=== PATIENT | male | born 1970 | race African-American/Black ===

== ENCOUNTER 2018-01-24 12:37 | Emergency (ER) | payer SELFPAY ==
[2018-01-24 13:01] VITALS: BP 129/70
[2018-01-24 13:25] LABS: AMORPHOUS SEDIMENT,URINE TRACE /HPF; APPEARANCE,URINE CLOUDY; BILIRUBIN,URINE NEGATIVE (NEGATIVE); COLOR,URINE YELLOW; GLUCOSE, URINE NEGATIVE (NEGATIVE); KETONES,URINE 20 mg/dL (NEGATIVE); LEUKOCYTE ESTERASE,URINE LARGE (NEGATIVE); NITRITE,URINE POSITIVE (NEGATIVE); PROTEIN,URINE NEGATIVE (NEGATIVE); URINE SPECIFIC GRAVITY 1.014; UROBILINOGEN,URINE NEGATIVE mg/dL (<2.0)
--- NOTE | 2018-01-24 14:52 | ER Document Report ---
ED GI/ - General Chief Complaint: Pain With Urination Stated Complaint: URINARY ISSUES Time Seen by Provider: 01/24/18 13:55 Mode of Arrival: Ambulatory Information source: Patient TRAVEL OUTSIDE OF THE U.S. IN LAST 30 DAYS: No - HPI Patient complains to provider of: Dysuria Notes: 01/24/18 14:47 Patient is here with complaints of pain with urination with increased urinary frequency and slightly decreased stream for the last few days. No fevers. No abdominal pain. No nausea, vomiting, diarrhea. He tells me he has a prior history of having prostatic hypertrophy and was on Flomax in the past, he does not currently have a primary care doctor here, so he has not been taking this medication. He denies any fevers. No rash. He denies any chest pain or shortness of breath. Nothing makes his symptoms better. He denies any prior history of urinary tract infection. He denies sexual activity. He denies penile discharge. No testicular pain or swelling. He has no other complaints at this time. - Related Data Allergies/Adverse Reactions: No Known Allergies Allergy (Verified 01/24/18 12:38) Past Medical History - Social History Smoking Status: Unknown if Ever Smoked Family History: Reviewed & Not Pertinent Review of Systems - Review of Systems -: Yes All other systems reviewed and negative Physical Exam - Vital signs Vitals: Temp Pulse Resp BP Pulse Ox 98.0 F 87 20 129/70 H 97 01/24/18 13:00 01/24/18 13:00 01/24/18 13:00 01/24/18 13:00 01/24/18 13:00 - Notes Notes: GENERAL: alert, cooperative, nontoxic, no distress. HEAD: normocephalic, atraumatic EYES: conjunctiva pink without discharge, no external redness or swelling. EARS: no external swelling, no external redness NOSE: atraumatic, no external swelling MOUTH/THROAT: mucous membranes moist and pink, posterior pharynx without erythema, swelling, exudate. No trismus or drooling. NECK: soft, supple, full range of motion, no meningismus. CHEST: no distress, lungs clear and equal throughout. No wheezing, rales, rhonchi. CARDIAC: regular rate and rhythm, no murmur, normal capillary refill, normal pulses. No peripheral edema noted. ABDOMEN: Soft, nontender. BACK: full range of motion, no CVA tenderness. EXTREMITIES: full range of motion of all extremities. No redness, no swelling. NEURO: alert and oriented x 3, no focal deficits, full range of motion of all extremities. PYSCH: appropriate mood, affect. Patient is cooperative. SKIN: pink, warm, dry, no rash. Course - Re-evaluation Re-evalutation: 01/24/18 14:48 Patient is nontoxic appearing with stable vitals. He is here with dysuria, urinary frequency and odor with his urine. Has been on for last several days. He has a prior history of having prostatic hypertrophy was on Flomax, he currently does not have a primary care doctor so he has not been taking that medication. He has no fevers. On exam he has no significant findings. No CVA tenderness or concern for pyelonephritis. No signs of urosepsis. Patient will be discharged home with prescription for Keflex, Pyridium, Flomax. Referrals to urology as well as primary care. Follow-up if not better in 1 week, sooner for worsening pain, high fever, persistent vomiting, flank pain, or for any further concerns. The patient's emergency department workup and current diagnosis were explained to the patient and or family. Follow-up instructions were provided. Medications if prescribed were discussed. Instructions for when to return to the emergency department including specific worrisome symptoms were discussed with the patient and/or family. The patient is noted to have elevated blood pressure during today's emergency department visit. The patient was informed of this finding. The patient was instructed that this may be related to pre-hypertension and requires further evaluation with a primary care provider. The patient has no hypertensive symptoms at this time. - Vital Signs Vital signs: Temp Pulse Resp BP Pulse Ox 98.0 F 87 20 129/70 H 97 01/24/18 13:00 01/24/18 13:00 01/24/18 13:00 01/24/18 13:00 01/24/18 13:00 - Laboratory Laboratory results interpreted by me: 01/24/18 12:54 Urine Ketones 20 H Urine Blood SMALL H Urine Nitrite POSITIVE H Ur Leukocyte Esterase LARGE H Discharge - Discharge Clinical Impression: UTI (urinary tract infection) Qualifiers: Urinary tract infection type: acute cystitis Hematuria presence: with hematuria Qualified Code(s): N30.01 - Acute cystitis with hematuria Condition: Stable Disposition: HOME, SELF-CARE Instructions: Cephalexin ([facility]), Urinary Tract Infection ([facility]) Additional Instructions: Take medications as prescribed. Drink plenty of fluids. Follow-up with primary care or urology at the next available appointment. Return the emergency department for worsening pain, high fever, persistent vomiting, flank pain, or for any further concerns. Your blood pressure was elevated during today's visit. Have this rechecked with your doctor. Prescriptions: Cephalexin Monohydrate [Keflex 500 mg Capsule] 500 mg PO TID #30 capsule Phenazopyridine HCl [Pyridium 200 mg Tablet] 200 mg PO TID #9 tablet Tamsulosin HCl [Flomax 0.4 mg Cap.sr] 0.4 mg PO DAILY #30 cap.sr.24h Forms: Elevated Blood Pressure, Smoking Cessation Education Referrals: [facility] [Provider Group] - Follow up as needed ENRIQUE GROVE MD [SHIRT IRONER] - Follow up as needed AMENA MILAN MD [SHIRT IRONER] - Follow up as needed KARLA GARDNER MD [NO LOCAL MD] - Follow up as needed TIEN DIAZ MD [SHIRT IRONER] - Follow up as needed WILD BREWER MD [SHIRT IRONER] - Follow up as needed DAPHNE BLEDSOE MD [NO LOCAL MD] - Follow up as needed DIOGO CHACON MD [EMERITUS] - Follow up as needed ANGEL RANGEL MD [NO LOCAL MD] - Follow up as needed RBUY BRIZUELA MD [NO LOCAL MD] - Follow up as needed
== END 2018-01-24 15:22 | disposition home or self-care (01) ==
LOC: ER 12:37
DX: N30.01 Acute cystitis with hematuria (principal); R30.9 Painful micturition, unspecified; R35.0 Frequency of micturition; R33.9 Retention of urine, unspecified; Z87.438 Personal history of other diseases of male genital organs; I10 Essential (primary) hypertension
CPT/HCPCS: 81001; 99283

== ENCOUNTER 2018-09-27 16:36 | Emergency (ER) | payer SELFPAY ==
[2018-09-27 16:43] VITALS: BP 131/79
== END 2018-09-27 20:00 | disposition left against medical advice (07) ==
LOC: ER 16:36
DX: Z53.21 Procedure and treatment not carried out due to patient leaving prior to being seen by health care provider (principal)

== ENCOUNTER 2019-07-09 13:27 | Emergency (ER) | payer OTHER ==
[2019-07-09] MEDS ORDERED: HYDROMORPHONE HCL INJ/PF 2 MG/ML AMPULE ONE (13:36)
[2019-07-09] MEDS ORDERED: HYDROMORPHONE HCL INJ/PF 2 MG/ML AMPULE IV ONE ×2 (13:38→13:40)
[2019-07-09] MEDS ORDERED: DIPH/PERTUSS(ACELL)/TETANUS VAC/PF 0.5 ML SYR (>=10YO) IM ONE (13:40)
[2019-07-09] MEDS ORDERED: BACITRACIN ZINC OINTMENT 15 GM TP ONE (13:44)
[2019-07-09] MEDS ORDERED: RINGERS SOLUTION,LACTATED 1,000 ML IV ONE (13:45)
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
[2019-07-09 14:08] LABS: ALBUMIN 4.6 g/dL (3.5-5.0); ALKALINE PHOSPHATASE 73 U/L (38-126); ANION GAP 14 (5-19); ASPARTATE AMINO TRANSFERASE 34 U/L (17-59); BILIRUBIN,DIRECT 0.2 mg/dL (0.0-0.4); BILIRUBIN,TOTAL 0.7 mg/dL (0.2-1.3); BLOOD UREA NITROGEN 10 mg/dL (7-20); CALCIUM 9.8 mg/dL (8.4-10.2); CARBON DIOXIDE 26 mmol/L (22-30); CHLORIDE 103 mmol/L (98-107); GLUCOSE 104 mg/dL (75-110); POTASSIUM 4.1 mmol/L (3.6-5.0); TOTAL PROTEIN 6.8 g/dL (6.3-8.2)
[2019-07-09 14:14] LABS: ABSOLUTE BASOPHILS # (AUTO) 0.1 10^3/uL (0.0-0.2); ABSOLUTE EOSINOPHILS # (AUTO) 0.6 10^3/uL (0.0-0.6); ABSOLUTE LYMPHOCYTES (AUTO) 3.4 10^3/uL (0.5-4.7); ABSOLUTE NEUT (AUTO) 7.1 10^3/uL (1.7-8.2); BASOPHILS % (AUTO) 0.9 % (0-2); EOSINOPHILS % (AUTO) 4.6 % (0-6); HEMATOCRIT 45.6 % (37.9-51.0); LYMPHOCYTES % (AUTO) 27.8 % (13-45); MEAN CORPUSCULAR HEMOGLOBIN 28.8 pg (27.0-33.4); MEAN CORPUSCULAR HGB CONC 32.9 g/dL (32.0-36.0); MEAN CORPUSCULAR VOLUME 88 fl (80-97); MONOCYTES % (AUTO) 8.6 % (3-13); PLATELET COUNT 273 10^3/uL (150-450); RED CELL DISTRIBUTION WIDTH 14.2 % (11.5-14.0); SEGMENTED NEUTROPHILS % (AUTO) 58.1 % (42-78); TOTAL CELLS COUNTED % (AUTO) 100 %; WHITE BLOOD COUNT 12.2 10^3/uL (4.0-10.5)
[2019-07-09] MEDS: HYDROMORPHONE HCL INJ/PF 2 MG/ML AMPULE IV PRN ×3 (15:09→19:40)
[2019-07-09 20:07] VITALS: BP 137/82
== END 2019-07-09 19:55 | disposition short-term general hospital (02) ==
LOC: ER 13:27
DX: T22.231A Burn of second degree of right upper arm, initial encounter (principal); T23.201A Burn of second degree of right hand, unspecified site, initial encounter; T21.21XA Burn of second degree of chest wall, initial encounter; T20.10XA Burn of first degree of head, face, and neck, unspecified site, initial encounter; M79.601 Pain in right arm; X08.8XXA Exposure to other specified smoke, fire and flames, initial encounter; F17.200 Nicotine dependence, unspecified, uncomplicated
CPT/HCPCS: 96376; 99291; 96361; 96374; 36415; 85025; 80053; 71045; 90715; J3490; J1170; J7120

== ENCOUNTER 2019-11-20 18:18 | Emergency (ER) | payer OTHER ==
--- NOTE | 2019-11-20 18:42 | ER Document Report ---
ED Medical Screen (RME) - General Chief Complaint: Drug Abuse Stated Complaint: PSYCH/WANTS HELP WITH ADDICTION Time Seen by Provider: 11/20/19 18:39 Mode of Arrival: Ambulatory Information source: Patient Notes: 49-year-old male presented to ED for complaint of needing help for drug addiction. He is alert and oriented respirations regular nonlabored at this time. He states he is addicted to alcohol and crack cocaine. He states his last alcohol and crack cocaine was last night. He states he is homeless. TRAVEL OUTSIDE OF THE U.S. IN LAST 30 DAYS: No - Related Data Allergies/Adverse Reactions: No Known Allergies Allergy (Verified 07/09/19 13:27) Past Medical History Renal/ Medical History: Denies: Hx Peritoneal Dialysis Physical Exam - Vital signs Vitals: Temp Pulse Resp BP Pulse Ox 98.5 F 91 16 129/79 H 100 11/20/19 18:32 11/20/19 18:32 11/20/19 18:32 11/20/19 18:32 11/20/19 18:32 Course - Vital Signs Vital signs: Temp Pulse Resp BP Pulse Ox 98.5 F 91 16 129/79 H 100 11/20/19 18:32 11/20/19 18:32 11/20/19 18:32 11/20/19 18:32 11/20/19 18:32
[2019-11-20 19:11] LABS: ABSOLUTE BASOPHILS # (AUTO) 0.1 10^3/uL (0.0-0.2); ABSOLUTE EOSINOPHILS # (AUTO) 0.8 10^3/uL (0.0-0.6); ABSOLUTE LYMPHOCYTES (AUTO) 2.3 10^3/uL (0.5-4.7); ABSOLUTE MONOCYTES (AUTO) 0.8 10^3/uL (0.1-1.4); ABSOLUTE NEUT (AUTO) 4.4 10^3/uL (1.7-8.2); BASOPHILS % (AUTO) 1.3 % (0-2); EOSINOPHILS % (AUTO) 9.6 % (0-6); HEMATOCRIT 52.8 % (37.9-51.0); HEMOGLOBIN 17.6 g/dL (13.5-17.0); LYMPHOCYTES % (AUTO) 26.8 % (13-45); MEAN CORPUSCULAR HEMOGLOBIN 29.9 pg (27.0-33.4); MEAN CORPUSCULAR HGB CONC 33.4 g/dL (32.0-36.0); MEAN CORPUSCULAR VOLUME 90 fl (80-97); MONOCYTES % (AUTO) 9.3 % (3-13); PLATELET COUNT 278 10^3/uL (150-450); RED BLOOD COUNT 5.89 10^6/uL (4.35-5.55); RED CELL DISTRIBUTION WIDTH 13.4 % (11.5-14.0); TOTAL CELLS COUNTED % (AUTO) 100 %; WHITE BLOOD COUNT 8.4 10^3/uL (4.0-10.5)
[2019-11-20 19:22] LABS: APPEARANCE,URINE CLEAR; BILIRUBIN,URINE NEGATIVE (NEGATIVE); COLOR,URINE YELLOW; GLUCOSE, URINE NEGATIVE (NEGATIVE); KETONES,URINE NEGATIVE (NEGATIVE); LEUKOCYTE ESTERASE,URINE NEGATIVE (NEGATIVE); NITRITE,URINE NEGATIVE (NEGATIVE); PROTEIN,URINE NEGATIVE (NEGATIVE); URINE SPECIFIC GRAVITY 1.015; UROBILINOGEN,URINE NEGATIVE mg/dL (<2.0)
[2019-11-20 19:27] LABS: ALBUMIN 4.5 g/dL (3.5-5.0); ALKALINE PHOSPHATASE 69 U/L (38-126); ANION GAP 8 (5-19); ASPARTATE AMINO TRANSFERASE 24 U/L (17-59); BILIRUBIN,TOTAL 0.3 mg/dL (0.2-1.3); BLOOD UREA NITROGEN 22 mg/dL (7-20); CALCIUM 9.4 mg/dL (8.4-10.2); CARBON DIOXIDE 28 mmol/L (22-30); CHLORIDE 103 mmol/L (98-107); GLUCOSE 83 mg/dL (75-110); POTASSIUM 4.4 mmol/L (3.6-5.0); TOTAL PROTEIN 7.2 g/dL (6.3-8.2)
[2019-11-20 19:34] LABS: ACETAMINOPHEN < 10 ug/mL (10-30); ALCOHOL < 10 mg/dL (NONE DETECTED); SALICYLATE < 1.0 mg/dL (2.0-20.0)
[2019-11-20 19:41] LABS: URINE AMPHETAMINES SCREEN NEGATIVE; URINE BARBITURATES SCREEN NEGATIVE; URINE BENZODIAZEPINES SCREEN NEGATIVE; URINE MARIJUANA (THC) SCREEN NEGATIVE; URINE METHADONE SCREEN NEGATIVE; URINE PHENCYCLIDINE SCREEN NEGATIVE
[2019-11-20 19:49] LABS: URINE COCAINE SCREEN UNCONFIRMED POSITIVE
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
--- NOTE | 2019-11-21 07:22 | EKG REPORT ---
SEVERITY:- ABNORMAL ECG - SINUS RHYTHM PROBABLE LVH WITH SECONDARY REPOL ABNRM NONSPECIFIC T INVERSIONS LATERAL LEADS : Confirmed by: Lux Odom MD 21-Nov-2019 07:21:33
--- NOTE | 2019-11-21 12:49 | PSYCHOLOGICAL NOTE ---
Psych Note - Psych Note Date seen by psych provider: 11/21/19 Time seen by psych provider: 08:25 Psych Note: Reason For Consult:rehab Consent Permissions:none given Patient reports that he uses crack cocaine and drinks alcohol. He states that he has been using for 12 years and just within this last month lost his job. He discloses that he wants to get help to get clean. He states that his addiction is so bad all he thinks about is "smoking and then getting the next hit, I do not even eat or bathe." He identifies that all the people he spends his days with are the same way and feels strongly that if he does not stop he will end up dying; "I do not want to I want to live and this is going end up killing me." Patient denies any difficulties from withdrawals and reports that he would like assistance into getting into rehab to help him not just get clean but understand "why all I do is think about using." Patient is alert and orientated to person, place, time and circumstance. Mood is euthymic with congruent affect. Patient denies suicidal and homicidal ideation. Delusions are absent and behaviors congruent with an intact reality based presentation ie organized and linear thought process. Eye contact is well-maintained. Conversational speech is within normal rate, tone and prosody. Intellectual abilities appear to be Clinician contacted [facility]. They confirm they accept [employer] and request referral packet faxed so they can do a patient interview as long as the patient's insurance is up to date and they take the type of [employer] the patient carries. Packet Faxed. Clinician was contacted by Mathew of [facility] who reports that the patient would have to pay a $6000 deductible however after that payment he is 100% covered. If the patient is able to pay the deductible they would be happy to accept the patient. Clinician contacted [facility]. They confirm they would only provide resources to the patient as he does not need assistance in detox and is not in mental health crisis. Clinician contacted [facility] [place] and spoke with Jose. [facility] addiction center confirms that the patient's deductible is 6000 however they have programs and assistance available. They have offered the patient a place for rehab in [facility] and have booked the patient a flight for 6:30 PM today. They are also sending assistance for transportation to the airport. Impression\\plan: Patient is cleared from acute psychiatric services. Patient presented with request in obtaining rehab. He has confirmed he would like to work with the [facility] addiction centers. They have offered him an inpatient rehab bed in [place], [place] in addition to transportation and flight out of [place]. Patient is highly encouraged to follow through with this voluntary treatment. Dr. Mckeon was consulted to care management of this patient; attending physicians in agreement with recommendations and disposition.
--- NOTE | 2019-11-21 13:19 | ER Document Report ---
Doctor's Note Notes: 11/21/19 13:16 PHYSICAL EXAMINATION: GENERAL: Appears well, healthy, well-nourished, no acute distress. LUNGS: Equal breath sounds bilaterally and clear to auscultation. No wheezes rales or rhonchi. CARDIOVASCULAR: S1-S2, regular rate, regular rhythm. Radial pulses 2+, normal. ABDOMEN: Normoactive bowel sounds. Soft, nontender, no guarding, no rebound tenderness, and no masses palpated. PSYCH: Normal mood, normal affect. Patient denies any suicidal or homicidal ideation at this time. Patient will be going to rehab in [place], as per his insurance request. Patient is in agreement with this plan. Mental [facility] has cleared the patient and is in agreement to have the patient go to rehab. Follow-up precautions were given. Verbal discharge instructions were given to the patient. They verbalized understanding. They are stable for discharge.
[2019-11-21 13:48] VITALS: BP 136/76
== END 2019-11-21 13:35 | disposition home or self-care (01) ==
LOC: ER 18:18
DX: F10.29 Alcohol dependence with unspecified alcohol-induced disorder (principal); F14.10 Cocaine abuse, uncomplicated; F17.210 Nicotine dependence, cigarettes, uncomplicated; Z59.0 Homelessness
CPT/HCPCS: 36415; 80053; 80307; 81001; 85025; 93005; 93010; 99284